=== PATIENT | female | born 1995 | race Caucasian/White ===

== ENCOUNTER 2021-12-14 16:09 | Emergency (ER) | payer OTHER ==
[~2021-12-14] VITALS: Ht 160 cm; Wt 72.6 kg
[2021-12-14] MEDS ORDERED: Robaxin750 MG PO (21:26)
[2021-12-14] MEDS ORDERED: LIDO700A20 TOP (21:26)
[2021-12-14] MEDS ORDERED: PRED20 PO (21:26)
[2021-12-14] MEDS ORDERED: IBUP800 PO (21:26)
== END 2021-12-14 21:44 | disposition home or self-care (01) ==
LOC: ER 16:09
DX: S16.1XXA Strain of muscle, fascia and tendon at neck level, initial encounter (principal); S40.012A Contusion of left shoulder, initial encounter; S09.90XA Unspecified injury of head, initial encounter; M54.12 Radiculopathy, cervical region; V43.52XA Car driver injured in collision with other type car in traffic accident, initial encounter; Y92.411 Interstate highway as the place of occurrence of the external cause; Z88.1 Allergy status to other antibiotic agents; Z88.0 Allergy status to penicillin; Z79.52 Long term (current) use of systemic steroids; Z79.899 Other long term (current) drug therapy
CPT/HCPCS: 72125; 73000; 73030; A9270; J1885